=== PATIENT | male | born 1965 | race African-American/Black ===

== ENCOUNTER 2023-11-20 15:32 | Inpatient (IN) | payer BC ==
[2023-11-20 16:11] LABS: #Basophils Less than 0.03 10x3/uL (0.0-0.2); #Eosinphils Less than 0.03 10x3/uL (0.0-0.7); %Monocytes 7.9 % (0.0-10.0); %Neutrophils 89.7 % (42.0-75.0); Hematocrit 26.1 % (42.0-52.0); Hemoglobin 8.9 g/dL (14.0-18.0); Mean Corpuscular HGB CONC 34.1 g/dL (32.0-36.0); Mean Corpuscular Hemoglobin 30.6 pg (27.0-31.0); Mean Corpuscular Volume 89.7 fL (78.0-98.0); Platelet Count 279 10x3/uL (130-400); RBC Distribution Width 12.6 % (11.5-14.5); Red Blood Cell (RBC) Count 2.91 mill/uL (4.70-6.10)
[2023-11-20 16:26] LABS: INR-International Normal Ratio 1.1; Prothrombin Time 14.5 sec (12.0-14.7)
[2023-11-20] MEDS ORDERED: Acetaminophen 325 MG TAB ONE (16:27)
[2023-11-20] MEDS ORDERED: Cefepime 2 GM VIAL ONE (16:28)
[2023-11-20] MEDS ORDERED: Vancomycin 1 GM/200 ML (FROZEN) BAG ONE (16:28)
[2023-11-20 16:33] LABS: Lipase 6 U/L (8-78); Magnesium 1.8 mg/dL (1.6-2.6)
[2023-11-20] MEDS ORDERED: Sodium Chloride 0.9% 100 ML ONE (16:33)
[2023-11-20 16:34] LABS: ALT (SGPT) 25 U/L (8-55); AST (SGOT) 33 U/L (5-34); Acetaminophen Less than 10 mcg/mL (Less than 10); Albumin 2.4 g/dL (3.5-5.0); Alcohol Less than 10.0 mg/dL (Less than 10); Alkaline Phosphatase 77 U/L (40-110); Anion Gap 17 mmol/L (10-20); BUN (Urea Nitrogen) 26 mg/dL (8.4-25.7); Bilirubin, Total 1.3 mg/dL (0.2-1.2); CK (CPK) 415 U/L (30-200); Calc. Creatinine Clearance 0 mL/min (70-130); Calcium 8.6 mg/dL (7.8-10.44); Carbon Dioxide 20 mmol/L (22-29); Chloride 102 mmol/L (98-107); Estimated GFR 52; Globulin 4.2 g/dL (2.4-3.5); Glucose 94 mg/dL (70-105); Potassium 2.9 mmol/L (3.5-5.1); Protein, Total 6.6 g/dL (6.0-8.3); Salicylate Less than 8.0 mg/dL (Less than 8.0); Sodium 136 mmol/L (136-145)
[2023-11-20 16:36] LABS: Troponin I 0.014 ng/mL (< 0.028)
[2023-11-20 17:31] LABS: SARS-CoV-2 E Target Negative; SARS-CoV-2 N2 Target Negative; SARS-CoV-2 NAA Rapid Test Not Detected (NotDetected); SARS-CoV-2 RdRP gene Negative
[2023-11-20 19:58] LABS: Amphetamine Not Detected (NotDetected); Barbiturates Screen Not Detected (NotDetected); Benzodiazepine Screen Not Detected (NotDetected); Cocaine Metabolite Screen Not Detected (NotDetected); Methadone Not Detected (NotDetected); Methamphetamine Not Detected (NotDetected); Opiate Screen Not Detected (NotDetected); Oxycodone Screen Not Detected (NotDetected); Phencyclidine (PCP) Not Detected (NotDetected); THC/Cannabinoid Screen Not Detected (NotDetected); Tricyclic Screen Not Detected (NotDetected)
[2023-11-20 20:00] LABS: Bacteria/HPF None Seen HPF (None Seen); Bilirubin Negative (Negative); Blood, Urine 1+ (Negative); CAUTI Indications for Culture Dysuria,urgency,freq; Clarity Clear (Clear); Glucose, Urine (Dipstick) Normal (Negative); Ketone, Urine Negative (Negative); Leukocyte Negative Leu/uL (Negative); Nitrite Negative (Negative); Protein, Urine (Dipstick) 100 mg/dL (Neg-Trace); Specific Gravity, Urine 1.015 (1.002-1.036); Squamous Epithelial None Seen HPF (0-3); Urobilinogen 3 mg/dL (Less than 2); WBC/HPF 0-3 HPF (0-3)
[2023-11-20 20:06] LABS: Urine Culture Reflex No No
[2023-11-20] MEDS ORDERED: Acetaminophen 650 MG Suppository PR PRN (22:04)
[2023-11-20] MEDS ORDERED: Ondansetron PF 4 MG/2 ML Vial IVP PRN (22:04)
[2023-11-20] MEDS ORDERED: Calcium Carbonate 500 MG ChewTAB PO PRN (22:04)
[2023-11-20] MEDS ORDERED: Dextrose 5% in Water 1,000 ML IV PRN (22:04)
[2023-11-20] MEDS ORDERED: Ondansetron ODT 4 MG TAB PO PRN (22:04)
[2023-11-20] MEDS ORDERED: Glucagon 1 MG/ML KIT IM PRN (22:04)
[2023-11-20] MEDS ORDERED: Boostrix 0.5 ML (Tdap) VIAL (>/=7 yrs of age) ONE (23:36)
[2023-11-21] MEDS ORDERED: diphenhydrAMINE 50 MG/ML VIAL ONE (00:57)
[2023-11-21] MEDS ORDERED: methylPREDNISolone Sod Succ 40 MG VIAL ONE (00:57)
[2023-11-21 03:20] VITALS: BMI 35.4
[2023-11-21] MEDS: Sodium Chloride 0.9% 1,000 ML IV SCH ×2 (03:53→10:56)
[2023-11-21] MEDS: Aspirin 81 mg Enteric Coated Tablet PO SCH ×2 (03:54→10:50)
[2023-11-21] MEDS: Piperacillin/Tazobactam 3.375 GM in Sodium Chloride 0.9% 100 ML IVPB SCH ×3 (03:55→10:41)
[2023-11-21 04:07] LABS: #Basophils Less than 0.03 10x3/uL (0.0-0.2); #Eosinphils Less than 0.03 10x3/uL (0.0-0.7); %Basophils 0.1 % (0.0-1.0); %Lymphocytes 2.5 % (21.0-51.0); %Monocytes 5.5 % (0.0-10.0); %Neutrophils 91.4 % (42.0-75.0); Hematocrit 28.3 % (42.0-52.0); Hemoglobin 9.5 g/dL (14.0-18.0); Mean Corpuscular HGB CONC 33.6 g/dL (32.0-36.0); Mean Corpuscular Hemoglobin 30.4 pg (27.0-31.0); Mean Corpuscular Volume 90.4 fL (78.0-98.0); Platelet Count 336 10x3/uL (130-400); RBC Distribution Width 13.1 % (11.5-14.5); Red Blood Cell (RBC) Count 3.13 mill/uL (4.70-6.10)
[2023-11-21] MEDS: Potassium Chloride 20 MEQ TAB PO SCH ×2 (04:10→04:55)
[2023-11-21 04:38] LABS: Anion Gap 21 mmol/L (10-20); BUN (Urea Nitrogen) 32 mg/dL (8.4-25.7); Calc. Creatinine Clearance 87 mL/min (70-130); Calcium 7.9 mg/dL (7.8-10.44); Carbon Dioxide 15 mmol/L (22-29); Cardiac Risk 4.8 (Less than 4.5); Chloride 102 mmol/L (98-107); Cholesterol 163 mg/dl (< 200 Desired); Estimated GFR 54; Glucose 376 mg/dL (70-105); HDL Cholesterol 34 mg/dL (>60 Neg Risk); LDL Cholesterol, Calculated 115 mg/dL; Potassium 3.6 mmol/L (3.5-5.1); Sodium 134 mmol/L (136-145); Triglycerides 72 mg/dL (Less than 150)
[2023-11-21] MEDS: diphenhydrAMINE 50 MG/ML VIAL IVP SCH (04:56)
[2023-11-21] MEDS: methylPREDNISolone Sod Succ/PF 125 MG/2 ML VIAL IVP SCH (04:56)
[2023-11-21] MEDS: Insulin Lispro 100 UNIT/ML 10 ML VIAL SC PRN ×2 (05:53→21:10)
[2023-11-21] MEDS ORDERED: Vancomycin 1 GM in Sodium Chloride 0.9% 250 ML 300 ML IVPB SCH (09:00)
[2023-11-21] MEDS: Famotidine 20 MG TAB PO SCH (10:50)
[2023-11-21] MEDS: Enoxaparin 40 MG (0.4 mL) SYRINGE SC SCH (10:50)
[2023-11-21] MEDS: glyBURIDE 5 MG TAB PO SCH ×2 (11:07→17:49)
[2023-11-21] MEDS: Amlodipine 5 MG TAB PO SCH (11:08)
[2023-11-21] MEDS: Insulin Glargine 30 UNITS/0.3 ML VIAL SC SCH (11:08)
[2023-11-21] MEDS: Atorvastatin Calcium 40 MG TAB PO SCH (21:10)
[2023-11-21] MEDS: DAPTOmycin 1,000 MG in Sodium Chloride 0.9% 50 ML IVPB SCH (21:30)
[2023-11-22 04:05] LABS: #Basophils Less than 0.03 10x3/uL (0.0-0.2); #Eosinphils Less than 0.03 10x3/uL (0.0-0.7); %Basophils 0.1 % (0.0-1.0); %Lymphocytes 4.7 % (21.0-51.0); %Monocytes 7.9 % (0.0-10.0); %Neutrophils 86.6 % (42.0-75.0); Hematocrit 30.8 % (42.0-52.0); Hemoglobin 10.4 g/dL (14.0-18.0); Mean Corpuscular HGB CONC 33.8 g/dL (32.0-36.0); Mean Corpuscular Hemoglobin 30.5 pg (27.0-31.0); Mean Corpuscular Volume 90.3 fL (78.0-98.0); Mean Platelet Volume 8.9 fL (7.4-10.4); Platelet Count 422 10x3/uL (130-400); RBC Distribution Width 12.9 % (11.5-14.5); Red Blood Cell (RBC) Count 3.41 mill/uL (4.70-6.10)
[2023-11-22 04:21] LABS: Hemoglobin A1c 8.7 % (4.0-6.0)
[2023-11-22 04:25] LABS: ALT (SGPT) 29 U/L (8-55); AST (SGOT) 22 U/L (5-34); Albumin 2.1 g/dL (3.5-5.0); Alkaline Phosphatase 91 U/L (40-110); Anion Gap 15 mmol/L (10-20); BUN (Urea Nitrogen) 30 mg/dL (8.4-25.7); Bilirubin, Total 0.7 mg/dL (0.2-1.2); Calc. Creatinine Clearance 107 mL/min (70-130); Calcium 8.4 mg/dL (7.8-10.44); Carbon Dioxide 20 mmol/L (22-29); Chloride 104 mmol/L (98-107); Estimated GFR 70; Globulin 4.3 g/dL (2.4-3.5); Glucose 339 mg/dL (70-105); Magnesium 2.4 mg/dL (1.6-2.6); Potassium 3.6 mmol/L (3.5-5.1); Protein, Total 6.4 g/dL (6.0-8.3); Sodium 135 mmol/L (136-145)
[2023-11-22] MEDS: Insulin Lispro 100 UNIT/ML 10 ML VIAL SC PRN (09:25)
[2023-11-22] MEDS ORDERED: Bupivacaine PF 0.5% 30 ML VIAL ONE (10:48)
[2023-11-22] MEDS ORDERED: fentaNYL PF 100 MCG/2 ML SYRINGE ONE (11:34)
[2023-11-22] MEDS ORDERED: PROPOFOL 20 ML ONE (11:35)
[2023-11-22] MEDS ORDERED: Midazolam HCl 2 mg/2 ml Vial ONE (11:43)
[2023-11-22] MEDS ORDERED: PHENYLEPHRINE-NS 100 MCG/ML 10 ML SYRINGE ONE ×2 (11:50→12:07)
[2023-11-22] MEDS ORDERED: Ondansetron PF 4 MG/2 ML Vial ONE (11:58)
[2023-11-22] MEDS ORDERED: traMADol HCl 50 MG TAB PO PRN (13:34)
[2023-11-22] MEDS: Zolpidem Tartrate 5 MG TAB PO PRN (20:05)
[2023-11-22] MEDS: Insulin Glargine 30 UNITS/0.3 ML VIAL SC SCH (20:35)
[2023-11-23 06:59] LABS: #Basophils Less than 0.03 10x3/uL (0.0-0.2); #Eosinphils Less than 0.03 10x3/uL (0.0-0.7); %Basophils 0.1 % (0.0-1.0); %Eosinophils 0.1 % (0.0-10.0); %Lymphocytes 9.7 % (21.0-51.0); %Monocytes 9.2 % (0.0-10.0); %Neutrophils 79.4 % (42.0-75.0); Hematocrit 27.6 % (42.0-52.0); Hemoglobin 9.1 g/dL (14.0-18.0); Mean Corpuscular Hemoglobin 30.6 pg (27.0-31.0); Mean Corpuscular Volume 92.9 fL (78.0-98.0); Mean Platelet Volume 8.9 fL (7.4-10.4); Platelet Count 426 10x3/uL (130-400); RBC Distribution Width 13.4 % (11.5-14.5); Red Blood Cell (RBC) Count 2.97 mill/uL (4.70-6.10)
[2023-11-23 07:26] LABS: ALT (SGPT) 38 U/L (8-55); AST (SGOT) 29 U/L (5-34); Albumin 2.1 g/dL (3.5-5.0); Alkaline Phosphatase 87 U/L (40-110); Anion Gap 14 mmol/L (10-20); BUN (Urea Nitrogen) 21 mg/dL (8.4-25.7); Bilirubin, Total 0.5 mg/dL (0.2-1.2); Calc. Creatinine Clearance 131 mL/min (70-130); Calcium 8.1 mg/dL (7.8-10.44); Carbon Dioxide 22 mmol/L (22-29); Chloride 107 mmol/L (98-107); Estimated GFR 89; Globulin 4.1 g/dL (2.4-3.5); Glucose 210 mg/dL (70-105); Magnesium 2.3 mg/dL (1.6-2.6); Potassium 3.6 mmol/L (3.5-5.1); Protein, Total 6.2 g/dL (6.0-8.3); Sodium 139 mmol/L (136-145)
[2023-11-23] MEDS: Lorazepam 2 MG/ML VIAL SLOW IVP SCH (10:06)
[2023-11-23] MEDS: Potassium Chloride 20 MEQ TAB PO SCH (10:06)
[2023-11-24] MEDS: Acetaminophen 325 MG TAB PO PRN (00:08)
[2023-11-24] MEDS: Lorazepam 0.5 MG TAB PO PRN (01:57)
[2023-11-24 04:27] LABS: Hematocrit 29.4 % (42.0-52.0); Hemoglobin 9.8 g/dL (14.0-18.0); Mean Corpuscular HGB CONC 33.3 g/dL (32.0-36.0); Mean Corpuscular Hemoglobin 30.2 pg (27.0-31.0); Mean Corpuscular Volume 90.5 fL (78.0-98.0); Mean Platelet Volume 8.4 fL (7.4-10.4); Platelet Count 397 10x3/uL (130-400); RBC Distribution Width 13.3 % (11.5-14.5); Red Blood Cell (RBC) Count 3.25 mill/uL (4.70-6.10)
[2023-11-24 04:59] LABS: Anion Gap 10 mmol/L (10-20); BUN (Urea Nitrogen) 14 mg/dL (8.4-25.7); Calc. Creatinine Clearance 133 mL/min (70-130); Calcium 8.5 mg/dL (7.8-10.44); Carbon Dioxide 23 mmol/L (22-29); Chloride 107 mmol/L (98-107); Estimated GFR 91; Glucose 157 mg/dL (70-105); Potassium 3.4 mmol/L (3.5-5.1); Sodium 137 mmol/L (136-145)
[2023-11-24 05:01] LABS: Lymphocytes 16 % (21-51); Monocytes 6 % (0-10); Neutrophil 78 % (42-75); Platelet Adequacy Comment Platelets Normal; RBC Morphology Within Normal Limits
[2023-11-24] MEDS ORDERED: Potassium Chloride 20 MEQ TAB PO SCH (08:30)
[2023-11-24] MEDS: Potassium Chloride 20 MEQ TAB PO SCH ×2 (08:54→17:21)
[2023-11-24] MEDS: Lisinopril 5 MG TAB PO SCH ×2 (08:55→12:43)
[2023-11-24] MEDS: Amlodipine 5 MG TAB PO SCH (12:40)
[2023-11-24] MEDS: traMADol HCl 50 MG TAB PO PRN (17:34)
[2023-11-24] MEDS: hydrALAZINE 20 MG/ML VIAL SLOW IVP PRN (22:25)
[2023-11-25 06:03] LABS: #Basophils 0.03 10x3/uL (0.0-0.2); %Basophils 0.2 % (0.0-1.0); %Eosinophils 0.5 % (0.0-10.0); %Lymphocytes 14.1 % (21.0-51.0); %Monocytes 10.1 % (0.0-10.0); %Neutrophils 73.4 % (42.0-75.0); Hemoglobin 10.2 g/dL (14.0-18.0); Mean Corpuscular HGB CONC 32.9 g/dL (32.0-36.0); Mean Corpuscular Hemoglobin 30.4 pg (27.0-31.0); Mean Corpuscular Volume 92.3 fL (78.0-98.0); Mean Platelet Volume 8.9 fL (7.4-10.4); Platelet Count 466 10x3/uL (130-400); RBC Distribution Width 13.3 % (11.5-14.5); Red Blood Cell (RBC) Count 3.36 mill/uL (4.70-6.10)
[2023-11-25 06:27] LABS: ALT (SGPT) 38 U/L (8-55); AST (SGOT) 26 U/L (5-34); Albumin 2.2 g/dL (3.5-5.0); Alkaline Phosphatase 94 U/L (40-110); Anion Gap 11 mmol/L (10-20); BUN (Urea Nitrogen) 21 mg/dL (8.4-25.7); Bilirubin, Total 0.4 mg/dL (0.2-1.2); Calc. Creatinine Clearance 116 mL/min (70-130); Carbon Dioxide 22 mmol/L (22-29); Chloride 106 mmol/L (98-107); Estimated GFR 77; Globulin 4.7 g/dL (2.4-3.5); Glucose 223 mg/dL (70-105); Potassium 3.9 mmol/L (3.5-5.1); Protein, Total 6.9 g/dL (6.0-8.3); Sodium 135 mmol/L (136-145)
[2023-11-25] MEDS: Amlodipine 10 MG TAB PO SCH (08:59)
[2023-11-25] MEDS: Lisinopril 10 MG TAB PO SCH ×2 (08:59→12:27)
[2023-11-25] MEDS: Gabapentin 100 MG CAP PO SCH ×2 (12:26→21:06)
[2023-11-25] MEDS: hydrALAZINE 20 MG/ML VIAL SLOW IVP PRN (13:40)
[2023-11-25] MEDS ORDERED: Potassium Chloride 20 MEQ TAB PO SCH (17:00)
[2023-11-25] MEDS: Ketorolac Tromethamine 30 MG (1 mL) VIAL IVP SCH (19:15)
[2023-11-25] MEDS: Insulin Glargine 30 UNITS/0.3 ML VIAL SC SCH (21:06)
[2023-11-26] MEDS: Lisinopril 20 MG TAB PO SCH (08:23)
[2023-11-26] MEDS: Ketorolac Tromethamine 30 MG (1 mL) VIAL IVP PRN (08:46)
[2023-11-26 10:40] LABS: Actual Bicarbonate (HCO3a) 20.7 mEq/L (22-28); Base Excess (BEa) -1.6 mEq/L (-2.0 to +3.0); CO2 Tension 27.6 mmHg (35.0-45.0); Calcium, Ionized (arterial) 1.21 mmol/L (1.12-1.30); Carboxyhemoglobin (COHb) 0.1 gm% (0.0-3.0); Hematocrit-ABG 32 % (42.0-52.0); Hemoglobin (Hb) 10.9 g/dL (14.0-18.0); O2 Tension (PaO2), arterial 84.1 mmHg (80.0-100.0); Potassium - ABG Lab 4.04 mmol/L (3.70-5.30); pH, Arterial 7.493 (7.35-7.45)
[2023-11-26 10:41] LABS: Puncture Site Left Radial artery
[2023-11-26 11:03] LABS: #Basophils Less than 0.03 10x3/uL (0.0-0.2); %Basophils 0.1 % (0.0-1.0); %Eosinophils 0.6 % (0.0-10.0); %Lymphocytes 12.3 % (21.0-51.0); %Monocytes 8.3 % (0.0-10.0); %Neutrophils 77.4 % (42.0-75.0); Hematocrit 32.2 % (42.0-52.0); Hemoglobin 10.6 g/dL (14.0-18.0); Mean Corpuscular HGB CONC 32.9 g/dL (32.0-36.0); Mean Corpuscular Hemoglobin 29.9 pg (27.0-31.0); Mean Platelet Volume 8.4 fL (7.4-10.4); Platelet Count 435 10x3/uL (130-400); RBC Distribution Width 13.6 % (11.5-14.5); Red Blood Cell (RBC) Count 3.54 mill/uL (4.70-6.10)
[2023-11-26 11:24] LABS: ALT (SGPT) 43 U/L (8-55); AST (SGOT) 38 U/L (5-34); Albumin 2.2 g/dL (3.5-5.0); Alkaline Phosphatase 82 U/L (40-110); Anion Gap 11 mmol/L (10-20); BUN (Urea Nitrogen) 23 mg/dL (8.4-25.7); Bilirubin, Total 0.4 mg/dL (0.2-1.2); Calc. Creatinine Clearance 114 mL/min (70-130); Calcium 8.9 mg/dL (7.8-10.44); Carbon Dioxide 21 mmol/L (22-29); Chloride 110 mmol/L (98-107); Estimated GFR 76; Globulin 4.4 g/dL (2.4-3.5); Glucose 192 mg/dL (70-105); Potassium 4.1 mmol/L (3.5-5.1); Protein, Total 6.6 g/dL (6.0-8.3); Sodium 138 mmol/L (136-145)
[2023-11-26] MEDS: levETIRAcetam 500 MG (5 mL) VIAL SLOW IVP SCH ×2 (11:29→21:23)
[2023-11-26] MEDS: Labetalol HCl 100 MG/20 ML VIAL SLOW IVP PRN (12:08)
[2023-11-26] MEDS: Nitroglycerin 2% Ointment 1 INCH/1 GM Packet ONE (14:16)
[2023-11-26] MEDS: Metoprolol Tartrate 25 MG TAB PO SCH ×2 (14:29→21:20)
[2023-11-26 14:43] LABS: Troponin I Less than 0.010 ng/mL (< 0.028)
[2023-11-26] MEDS: Nitroglycerin 0.2mg/Hour PATCH TD SCH (15:35)
[2023-11-26 18:21] LABS: Troponin I Less than 0.010 ng/mL (< 0.028)
[2023-11-26] MEDS ORDERED: levETIRAcetam 500 MG (5 mL) VIAL SLOW IVP SCH (21:00)
[2023-11-27] MEDS: Transdermal Patch Removal TOP SCH (03:19)
[2023-11-27 07:39] LABS: #Basophils 0.03 10x3/uL (0.0-0.2); %Basophils 0.2 % (0.0-1.0); %Eosinophils 0.5 % (0.0-10.0); %Lymphocytes 10.7 % (21.0-51.0); %Monocytes 8.4 % (0.0-10.0); %Neutrophils 78.9 % (42.0-75.0); Hematocrit 31.4 % (42.0-52.0); Hemoglobin 10.5 g/dL (14.0-18.0); Mean Corpuscular HGB CONC 33.4 g/dL (32.0-36.0); Mean Corpuscular Hemoglobin 30.5 pg (27.0-31.0); Mean Corpuscular Volume 91.3 fL (78.0-98.0); Mean Platelet Volume 8.3 fL (7.4-10.4); Platelet Count 440 10x3/uL (130-400); RBC Distribution Width 13.6 % (11.5-14.5); Red Blood Cell (RBC) Count 3.44 mill/uL (4.70-6.10)
[2023-11-27 07:59] LABS: Lactic Acid 0.82 mmol/L (0.5-2.2)
[2023-11-27 08:05] LABS: ALT (SGPT) 55 U/L (8-55); AST (SGOT) 43 U/L (5-34); Albumin 2.3 g/dL (3.5-5.0); Alkaline Phosphatase 90 U/L (40-110); Anion Gap 11 mmol/L (10-20); BUN (Urea Nitrogen) 19 mg/dL (8.4-25.7); Bilirubin, Total 0.4 mg/dL (0.2-1.2); Calc. Creatinine Clearance 126 mL/min (70-130); Calcium 8.7 mg/dL (7.8-10.44); Carbon Dioxide 21 mmol/L (22-29); Chloride 109 mmol/L (98-107); Estimated GFR 85; Globulin 4.6 g/dL (2.4-3.5); Glucose 231 mg/dL (70-105); Phosphorus 3.2 mg/dL (2.3-4.7); Potassium 4.1 mmol/L (3.5-5.1); Protein, Total 6.9 g/dL (6.0-8.3); Sodium 137 mmol/L (136-145)
[2023-11-27] MEDS: Lisinopril 20 MG TAB PO SCH (20:41)
[2023-11-28] MEDS: fentaNYL 50 mcg/mL 1 mL Vial SLOW IVP PRN (04:09)
[2023-11-28] MEDS ORDERED: Magnevist 469MG/ML 20 ML VIAL ONE (13:40)
[2023-11-28] MEDS: Nitroglycerin 2% Ointment 1 INCH/1 GM Packet TOP SCH (17:02)
[2023-11-29 05:23] LABS: #Basophils 0.03 10x3/uL (0.0-0.2); %Basophils 0.2 % (0.0-1.0); %Eosinophils 0.6 % (0.0-10.0); %Lymphocytes 12.8 % (21.0-51.0); %Monocytes 9.5 % (0.0-10.0); Hematocrit 31.3 % (42.0-52.0); Hemoglobin 10.3 g/dL (14.0-18.0); Mean Corpuscular HGB CONC 32.9 g/dL (32.0-36.0); Mean Corpuscular Hemoglobin 30.8 pg (27.0-31.0); Mean Corpuscular Volume 93.7 fL (78.0-98.0); Mean Platelet Volume 8.4 fL (7.4-10.4); Platelet Count 370 10x3/uL (130-400); RBC Distribution Width 13.8 % (11.5-14.5); Red Blood Cell (RBC) Count 3.34 mill/uL (4.70-6.10)
[2023-11-29 05:26] LABS: Anion Gap 10 mmol/L (10-20); BUN (Urea Nitrogen) 19 mg/dL (8.4-25.7); Calc. Creatinine Clearance 127 mL/min (70-130); Calcium 8.6 mg/dL (7.8-10.44); Carbon Dioxide 21 mmol/L (22-29); Chloride 113 mmol/L (98-107); Estimated GFR 88; Glucose 91 mg/dL (70-105); Potassium 3.7 mmol/L (3.5-5.1); Sodium 140 mmol/L (136-145)
[2023-11-29] MEDS: Lorazepam 2 MG/ML VIAL SLOW IVP PRN (11:30)
[2023-11-30 06:44] LABS: #Basophils 0.03 10x3/uL (0.0-0.2); %Basophils 0.2 % (0.0-1.0); %Eosinophils 0.4 % (0.0-10.0); %Lymphocytes 9.1 % (21.0-51.0); %Monocytes 7.6 % (0.0-10.0); Hematocrit 31.8 % (42.0-52.0); Hemoglobin 10.4 g/dL (14.0-18.0); Mean Corpuscular HGB CONC 32.7 g/dL (32.0-36.0); Mean Corpuscular Hemoglobin 30.8 pg (27.0-31.0); Mean Corpuscular Volume 94.1 fL (78.0-98.0); Mean Platelet Volume 8.6 fL (7.4-10.4); Platelet Count 362 10x3/uL (130-400); RBC Distribution Width 13.6 % (11.5-14.5); Red Blood Cell (RBC) Count 3.38 mill/uL (4.70-6.10)
[2023-11-30 06:58] LABS: Anion Gap 13 mmol/L (10-20); BUN (Urea Nitrogen) 20 mg/dL (8.4-25.7); Calc. Creatinine Clearance 123 mL/min (70-130); Calcium 8.8 mg/dL (7.8-10.44); Carbon Dioxide 19 mmol/L (22-29); Chloride 110 mmol/L (98-107); Estimated GFR 84; Glucose 121 mg/dL (70-105); Potassium 3.9 mmol/L (3.5-5.1); Sodium 138 mmol/L (136-145)
[2023-11-30] MEDS: Meropenem 1 GM in Sodium Chloride 0.9% 100 ML IVPB SCH ×2 (16:13→23:51)
[2023-12-01 04:14] LABS: #Basophils 0.03 10x3/uL (0.0-0.2); %Basophils 0.2 % (0.0-1.0); %Eosinophils 0.5 % (0.0-10.0); %Lymphocytes 8.8 % (21.0-51.0); %Monocytes 7.7 % (0.0-10.0); %Neutrophils 82.3 % (42.0-75.0); Hemoglobin 9.8 g/dL (14.0-18.0); Mean Corpuscular HGB CONC 32.7 g/dL (32.0-36.0); Mean Corpuscular Volume 91.7 fL (78.0-98.0); Mean Platelet Volume 8.5 fL (7.4-10.4); Platelet Count 344 10x3/uL (130-400); RBC Distribution Width 13.5 % (11.5-14.5); Red Blood Cell (RBC) Count 3.27 mill/uL (4.70-6.10)
[2023-12-01 04:35] LABS: Anion Gap 14 mmol/L (10-20); BUN (Urea Nitrogen) 18 mg/dL (8.4-25.7); Calc. Creatinine Clearance 147 mL/min (70-130); Calcium 8.4 mg/dL (7.8-10.44); Carbon Dioxide 17 mmol/L (22-29); Chloride 112 mmol/L (98-107); Estimated GFR 101; Glucose 46 mg/dL (70-105); Potassium 3.3 mmol/L (3.5-5.1); Sodium 140 mmol/L (136-145)
[2023-12-01] MEDS: Dextrose 50% Abboject 50 ML SYRINGE SLOW IVP PRN (04:36)
[2023-12-01] MEDS ORDERED: Electrolyte Replacement Protocol FS PRN (06:30)
[2023-12-01] MEDS ORDERED: Potassium Chloride 20 MEQ TAB PO SCH (08:00)
[2023-12-01] MEDS: glyBURIDE 5 MG TAB PO SCH (09:05)
[2023-12-01] MEDS: Potassium Chloride 20 MEQ in Premix 1 BAG IVPB SCH (09:07)
[2023-12-01] MEDS: Senokot S 8.6-50 MG TAB PO PRN (09:12)
[2023-12-01 15:37] LABS: Potassium 3.7 mmol/L (3.5-5.1)
[2023-12-01] MEDS: Meropenem 1 GM VIAL ONE ×2 (16:07→16:11)
[2023-12-01] MEDS: Gabapentin 100 MG CAP PO SCH (16:09)
[2023-12-01] MEDS: Multivit, Therapeutic 1 TAB PO SCH (21:03)
[2023-12-01] MEDS: Folic Acid 1 MG TAB PO SCH (21:03)
[2023-12-01] MEDS: Senokot S 8.6-50 MG TAB PO SCH (21:03)
[2023-12-01] MEDS: Cholecalciferol 1,000 UNITS (25 MCG) TAB PO SCH (21:03)
[2023-12-01] MEDS: Cyanocobalamin (Vitamin B-12) 1,000 MCG TAB PO SCH (21:04)
[2023-12-02 05:49] LABS: #Basophils 0.04 10x3/uL (0.0-0.2); %Basophils 0.3 % (0.0-1.0); %Eosinophils 0.6 % (0.0-10.0); %Lymphocytes 10.5 % (21.0-51.0); %Monocytes 7.8 % (0.0-10.0); %Neutrophils 80.3 % (42.0-75.0); Hematocrit 31.2 % (42.0-52.0); Hemoglobin 10.3 g/dL (14.0-18.0); Mean Corpuscular Hemoglobin 29.9 pg (27.0-31.0); Mean Corpuscular Volume 90.7 fL (78.0-98.0); Mean Platelet Volume 8.8 fL (7.4-10.4); Platelet Count 359 10x3/uL (130-400); RBC Distribution Width 13.4 % (11.5-14.5); Red Blood Cell (RBC) Count 3.44 mill/uL (4.70-6.10)
[2023-12-02 06:08] LABS: Anion Gap 11 mmol/L (10-20); BUN (Urea Nitrogen) 17 mg/dL (8.4-25.7); Calc. Creatinine Clearance 133 mL/min (70-130); Calcium 8.6 mg/dL (7.8-10.44); Carbon Dioxide 19 mmol/L (22-29); Chloride 112 mmol/L (98-107); Estimated GFR 92; Glucose 161 mg/dL (70-105); Potassium 3.9 mmol/L (3.5-5.1); Sodium 138 mmol/L (136-145)
[2023-12-02] MEDS ORDERED: Sodium Bicarbonate 0.5 MEQ/ML SDV 10 ML ONE (09:39)
[2023-12-02] MEDS: pyridOXINE 50 MG (B6) TAB PO SCH (12:09)
[2023-12-02] MEDS: fentaNYL 50 mcg/mL 1 mL Vial SLOW IVP PRN (12:19)
[2023-12-02 12:55] LABS: CSF, Glucose 99 mg/dl (40-70)
[2023-12-02 13:05] LABS: CSF, Protein 359.3 mg/dL (15-40)
[2023-12-02] MEDS: Polyethylene Glycol 3350 17 GM Packet PO SCH ×2 (13:12→20:05)
[2023-12-02 13:32] LABS: Color Of CSF Supernatant COLORLESS (Colorless); Tube # 2; Unspun CSF Color PINK (Colorless)
[2023-12-02 14:37] LABS: CSF Source CSF; Tube # 4
[2023-12-02 14:38] LABS: Clarity Hazy (Clear)
[2023-12-02] MEDS: Insulin Lispro 100 UNIT/ML 10 ML VIAL SC PRN (17:09)
[2023-12-02] MEDS: Bisacodyl 10 MG SUPP PR SCH (20:24)
[2023-12-03] MEDS: Lactated Ringer's 1,000 ML IV SCH (00:24)
[2023-12-03] MEDS ORDERED: Lactated Ringer's 500 ML IV SCH (00:30)
[2023-12-03] MEDS: Albumin 25% 25 GM (100 mL) BOT IVPB SCH (00:32)
[2023-12-03] MEDS: Fleet Saline Enema 133 ML BOT PR SCH (02:42)
[2023-12-03 05:09] LABS: Anion Gap 13 mmol/L (10-20); BUN (Urea Nitrogen) 26 mg/dL (8.4-25.7); Calc. Creatinine Clearance 132 mL/min (70-130); Calcium 8.7 mg/dL (7.8-10.44); Carbon Dioxide 20 mmol/L (22-29); Chloride 112 mmol/L (98-107); Estimated GFR 92; Glucose 102 mg/dL (70-105); Potassium 3.7 mmol/L (3.5-5.1); Sodium 141 mmol/L (136-145)
[2023-12-03 05:19] LABS: #Basophils Less than 0.03 10x3/uL (0.0-0.2); %Basophils 0.2 % (0.0-1.0); %Eosinophils 0.5 % (0.0-10.0); %Lymphocytes 11.6 % (21.0-51.0); %Monocytes 8.2 % (0.0-10.0); %Neutrophils 79.2 % (42.0-75.0); Hematocrit 27.1 % (42.0-52.0); Hemoglobin 8.9 g/dL (14.0-18.0); Mean Corpuscular HGB CONC 32.8 g/dL (32.0-36.0); Mean Corpuscular Hemoglobin 30.6 pg (27.0-31.0); Mean Corpuscular Volume 93.1 fL (78.0-98.0); Mean Platelet Volume 9.4 fL (7.4-10.4); Platelet Count 350 10x3/uL (130-400); RBC Distribution Width 13.6 % (11.5-14.5); Red Blood Cell (RBC) Count 2.91 mill/uL (4.70-6.10)
[2023-12-03] MEDS: Milk Of Magnesia 30 ML UDCUP PO PRN (08:51)
[2023-12-03] MEDS: Heparin 5,000 UNITS/ML VIAL SC SCH (20:52)
[2023-12-03] MEDS: levETIRAcetam 500 MG TAB PO SCH (20:53)
[2023-12-04 08:58] LABS: #Basophils 0.03 10x3/uL (0.0-0.2); %Basophils 0.2 % (0.0-1.0); %Eosinophils 0.9 % (0.0-10.0); %Lymphocytes 10.4 % (21.0-51.0); %Monocytes 7.5 % (0.0-10.0); %Neutrophils 80.8 % (42.0-75.0); Hematocrit 28.8 % (42.0-52.0); Hemoglobin 9.5 g/dL (14.0-18.0); Mean Corpuscular Hemoglobin 30.1 pg (27.0-31.0); Mean Corpuscular Volume 91.1 fL (78.0-98.0); Mean Platelet Volume 9.2 fL (7.4-10.4); Platelet Count 346 10x3/uL (130-400); RBC Distribution Width 13.4 % (11.5-14.5); Red Blood Cell (RBC) Count 3.16 mill/uL (4.70-6.10)
[2023-12-04 09:12] LABS: Anion Gap 13 mmol/L (10-20); BUN (Urea Nitrogen) 17 mg/dL (8.4-25.7); Calc. Creatinine Clearance 149 mL/min (70-130); Calcium 8.7 mg/dL (7.8-10.44); Carbon Dioxide 21 mmol/L (22-29); Chloride 112 mmol/L (98-107); Estimated GFR 104; Glucose 119 mg/dL (70-105); Magnesium 2.1 mg/dL (1.6-2.6); Phosphorus 2.9 mg/dL (2.3-4.7); Potassium 3.4 mmol/L (3.5-5.1); Sodium 143 mmol/L (136-145)
[2023-12-04] MEDS: Potassium Chloride 20 MEQ TAB PO SCH (11:10)
[2023-12-04] MEDS: Pantoprazole DR 40 MG TAB PO SCH (11:10)
[2023-12-04] MEDS: Thiamine 100 MG TAB PO SCH (11:11)
[2023-12-04] MEDS: hydrALAZINE 20 MG/ML VIAL SLOW IVP PRN (12:27)
[2023-12-04] MEDS: Potassium Chloride 20 MEQ in Lactated Ringer's 1,000 ML IVPB SCH (12:57)
[2023-12-04] MEDS: Potassium Chloride 20 MEQ in Lactated Ringer's 1,000 ML IV SCH (14:03)
[2023-12-04] MEDS: Gabapentin 100 MG CAP PO SCH (19:55)
[2023-12-05] MEDS: Ketorolac Tromethamine 30 MG (1 mL) VIAL IVP SCH (04:42)
[2023-12-05 05:49] LABS: #Basophils 0.03 10x3/uL (0.0-0.2); %Basophils 0.2 % (0.0-1.0); %Eosinophils 0.9 % (0.0-10.0); %Lymphocytes 8.5 % (21.0-51.0); %Monocytes 7.2 % (0.0-10.0); %Neutrophils 82.8 % (42.0-75.0); Anion Gap 16 mmol/L (10-20); BUN (Urea Nitrogen) 21 mg/dL (8.4-25.7); Calc. Creatinine Clearance 143 mL/min (70-130); Calcium 8.6 mg/dL (7.8-10.44); Carbon Dioxide 19 mmol/L (22-29); Chloride 112 mmol/L (98-107); Estimated GFR 101; Glucose 175 mg/dL (70-105); Hematocrit 29.9 % (42.0-52.0); Hemoglobin 9.9 g/dL (14.0-18.0); Mean Corpuscular HGB CONC 33.1 g/dL (32.0-36.0); Mean Corpuscular Hemoglobin 30.6 pg (27.0-31.0); Mean Corpuscular Volume 92.3 fL (78.0-98.0); Mean Platelet Volume 9.3 fL (7.4-10.4); Platelet Count 359 10x3/uL (130-400); RBC Distribution Width 13.5 % (11.5-14.5); Red Blood Cell (RBC) Count 3.24 mill/uL (4.70-6.10); Sodium 143 mmol/L (136-145)
[2023-12-05] MEDS ORDERED: Morphine 2 MG/ML VIAL SLOW IVP PRN (08:58)
[2023-12-05] MEDS: HYDROcodone/Acetaminophen 5/325 mg Tablet PO PRN (09:39)
[2023-12-05] MEDS: Ketorolac Tromethamine 10 MG TAB PO SCH (11:50)
[2023-12-05] MEDS: Lactated Ringer's 1,000 ML IV SCH (13:48)
[2023-12-05] MEDS: traMADol HCl 50 MG TAB PO PRN (14:39)
[2023-12-05] MEDS: Enoxaparin 40 MG (0.4 mL) SYRINGE SC SCH (21:53)
[2023-12-06 04:50] LABS: #Basophils 0.03 10x3/uL (0.0-0.2); %Basophils 0.3 % (0.0-1.0); %Eosinophils 1.5 % (0.0-10.0); %Lymphocytes 8.7 % (21.0-51.0); %Monocytes 8.3 % (0.0-10.0); %Neutrophils 80.7 % (42.0-75.0); Hematocrit 30.5 % (42.0-52.0); Mean Corpuscular HGB CONC 32.8 g/dL (32.0-36.0); Mean Corpuscular Hemoglobin 29.9 pg (27.0-31.0); Mean Platelet Volume 9.2 fL (7.4-10.4); Platelet Count 341 10x3/uL (130-400); RBC Distribution Width 13.4 % (11.5-14.5); Red Blood Cell (RBC) Count 3.35 mill/uL (4.70-6.10)
[2023-12-06 05:07] LABS: Anion Gap 12 mmol/L (10-20); BUN (Urea Nitrogen) 27 mg/dL (8.4-25.7); Calc. Creatinine Clearance 142 mL/min (70-130); Calcium 8.6 mg/dL (7.8-10.44); Carbon Dioxide 19 mmol/L (22-29); Chloride 111 mmol/L (98-107); Estimated GFR 101; Glucose 279 mg/dL (70-105); Potassium 4.2 mmol/L (3.5-5.1); Sodium 138 mmol/L (136-145)
[2023-12-06] MEDS: Insulin Glargine 30 UNITS/0.3 ML VIAL SC SCH (09:22)
[2023-12-06] MEDS ORDERED: Morphine 4 MG/ML VIAL SLOW IVP PRN (14:21)
[2023-12-06] MEDS: Ketorolac Tromethamine 10 MG TAB PO SCH (17:53)
[2023-12-07 05:51] LABS: #Basophils Less than 0.03 10x3/uL (0.0-0.2); %Basophils 0.2 % (0.0-1.0); %Eosinophils 1.7 % (0.0-10.0); %Monocytes 7.7 % (0.0-10.0); %Neutrophils 78.2 % (42.0-75.0); Hematocrit 29.8 % (42.0-52.0); Hemoglobin 9.7 g/dL (14.0-18.0); Mean Corpuscular HGB CONC 32.6 g/dL (32.0-36.0); Mean Corpuscular Hemoglobin 30.5 pg (27.0-31.0); Mean Corpuscular Volume 93.7 fL (78.0-98.0); Mean Platelet Volume 9.5 fL (7.4-10.4); Platelet Count 322 10x3/uL (130-400); RBC Distribution Width 13.3 % (11.5-14.5); Red Blood Cell (RBC) Count 3.18 mill/uL (4.70-6.10)
[2023-12-07 06:02] LABS: Anion Gap 14 mmol/L (10-20); BUN (Urea Nitrogen) 24 mg/dL (8.4-25.7); Calc. Creatinine Clearance 153 mL/min (70-130); Calcium 8.6 mg/dL (7.8-10.44); Carbon Dioxide 20 mmol/L (22-29); Chloride 111 mmol/L (98-107); Estimated GFR 103; Glucose 227 mg/dL (70-105); Potassium 4.7 mmol/L (3.5-5.1); Sodium 140 mmol/L (136-145)
[2023-12-07] MEDS: Insulin Lispro 100 UNIT/ML 10 ML VIAL SC PRN (06:31)
[2023-12-08 08:16] LABS: #Basophils 0.03 10x3/uL (0.0-0.2); %Basophils 0.4 % (0.0-1.0); %Eosinophils 1.4 % (0.0-10.0); %Monocytes 7.2 % (0.0-10.0); %Neutrophils 76.6 % (42.0-75.0); Hematocrit 32.8 % (42.0-52.0); Hemoglobin 10.9 g/dL (14.0-18.0); Mean Corpuscular HGB CONC 33.2 g/dL (32.0-36.0); Mean Corpuscular Hemoglobin 30.1 pg (27.0-31.0); Mean Corpuscular Volume 90.6 fL (78.0-98.0); Mean Platelet Volume 9.5 fL (7.4-10.4); Platelet Count 244 10x3/uL (130-400); RBC Distribution Width 13.1 % (11.5-14.5); Red Blood Cell (RBC) Count 3.62 mill/uL (4.70-6.10)
[2023-12-08 09:30] LABS: Anion Gap 13 mmol/L (10-20); BUN (Urea Nitrogen) 14 mg/dL (8.4-25.7); Calc. Creatinine Clearance 162 mL/min (70-130); Calcium 8.8 mg/dL (7.8-10.44); Carbon Dioxide 23 mmol/L (22-29); Chloride 109 mmol/L (98-107); Estimated GFR 106; Glucose 183 mg/dL (70-105); Potassium 3.8 mmol/L (3.5-5.1); Sodium 141 mmol/L (136-145)
[2023-12-08] MEDS ORDERED: methylPREDNISolone Sod Succ/PF 125 MG/2 ML VIAL IVP SCH (11:00)
[2023-12-08] MEDS: methylPREDNISolone Sod Succ 1 GM in Sodium Chloride 0.9% 250 ML 250 ML IVPB SCH (13:33)
[2023-12-08 16:13] LABS: CSF IgG Index 1.3 (0.0-0.7); CSF IgG Synthesis Rate 236.1 mg/day (-9.9 TO +3.3); IgG Serum 1410 mg/dL (603-1613); IgG/Alb CSF 0.54 (0.00-0.25)
[2023-12-08] MEDS: Insulin Glargine 30 UNITS/0.3 ML VIAL SC SCH (20:50)
[2023-12-08] MEDS: Melatonin 3 MG TAB PO SCH (21:50)
[2023-12-09] MEDS ORDERED: methylPREDNISolone Sod Succ/PF 125 MG/2 ML VIAL IVP SCH (09:00)
[2023-12-09] MEDS: methylPREDNISolone Sod Succ 1 GM in Sodium Chloride 0.9% 250 ML 250 ML IVPB SCH (09:09)
[2023-12-09] MEDS: Meropenem 1 GM VIAL ONE (15:48)
[2023-12-09] MEDS ORDERED: Bisacodyl 10 MG SUPP PR PRN (19:24)
[2023-12-09] MEDS: Insulin Glargine 30 UNITS/0.3 ML VIAL SC SCH (20:53)
[2023-12-10 10:31] LABS: Actual Bicarbonate (HCO3v) 24.7 mEq/L (22-28); Base Excess 0.5 mEq/L (-2.0 to +3.0); Calcium, Ionized (venous) 1.18 mmol/L (1.16-1.32); Chloride (VBG) 104 mmol/L (98-106); Hematocrit-VBG 33 % (42.0-52.0); Hemoglobin (Hb) 11.3 g/dL (13.1-17.2); Potassium (VBG) 4.29 mmol/L (3.70-5.30); Sodium 137 mmol/L (133-146); pH (venous) 7.428 (7.32-7.43)
[2023-12-10] MEDS: Insulin Glargine 30 UNITS/0.3 ML VIAL SC SCH (21:36)
[2023-12-11 17:38] VITALS: BMI 33.2
[2023-12-11] MEDS: Insulin Glargine 30 UNITS/0.3 ML VIAL SC SCH (20:48)
[2023-12-13] MEDS ORDERED: Insulin Glargine 30 UNITS/0.3 ML VIAL SC SCH (15:45)
[2023-12-13] MEDS: Insulin Glargine 30 UNITS/0.3 ML VIAL SC SCH (21:43)
[2023-12-14] MEDS: Insulin Glargine 30 UNITS/0.3 ML VIAL SC SCH (21:34)
[2023-12-15] MEDS: Insulin Lispro 100 UNIT/ML 10 ML VIAL SC SCH (12:14)
[2023-12-15] MEDS ORDERED: traMADol HCl 50 MG TAB PO PRN (14:56)
[2023-12-15] MEDS: LevoFLOXacin 750 MG TAB PO SCH (15:31)
[2023-12-15] MEDS: Amoxicillin/Potassium Clav 875 MG TAB PO SCH (21:54)
[2023-12-16] MEDS: HYDROcodone/Acetaminophen 5/325 mg Tablet PO PRN (12:04)
[2023-12-18 04:50] LABS: Hematocrit 29.7 % (42.0-52.0); Hemoglobin 9.3 g/dL (14.0-18.0); Mean Corpuscular HGB CONC 31.3 g/dL (32.0-36.0); Mean Corpuscular Hemoglobin 30.3 pg (27.0-31.0); Mean Corpuscular Volume 96.7 fL (78.0-98.0); Mean Platelet Volume 9.6 fL (7.4-10.4); Platelet Count 202 10x3/uL (130-400); RBC Distribution Width 14.2 % (11.5-14.5); Red Blood Cell (RBC) Count 3.07 mill/uL (4.70-6.10)
[2023-12-18 05:05] LABS: Anion Gap 10 mmol/L (10-20); BUN (Urea Nitrogen) 19 mg/dL (8.4-25.7); Calc. Creatinine Clearance 139 mL/min (70-130); Calcium 8.6 mg/dL (7.8-10.44); Carbon Dioxide 24 mmol/L (22-29); Chloride 110 mmol/L (98-107); Estimated GFR 100; Glucose 92 mg/dL (70-105); Potassium 3.5 mmol/L (3.5-5.1); Sodium 140 mmol/L (136-145)
[2023-12-18 12:05] VITALS: TEMP 98.1
[2023-12-18 13:55] VITALS: BP 133/72
== END 2023-12-18 15:18 | disposition home health service (06) | DRG 853 ==
LOC: ERS 15:32 → OBSVTOIN 21:23 → 2SE 21:23 → MSONC 11-24 15:16 → IMCU/EMU 11-26 11:16 → 2SE 12-13 22:18
PROVIDERS: ADMIT Student in an Organized Health Care Education/Training Program; ATTEND Internal Medicine
PROC: 0T9B70Z Drainage of Bladder with Drainage Device, Via Natural or Artificial Opening (ICD-10-PCS; principal; 2023-11-22)
PROC: 0Y6M0ZD Detachment at Right Foot, Partial 4th Ray, Open Approach (ICD-10-PCS; 2023-11-22)
PROC: 0Y6M0ZF Detachment at Right Foot, Partial 5th Ray, Open Approach (ICD-10-PCS; 2023-11-22)
PROC: 4A00X4Z Measurement of Central Nervous Electrical Activity, External Approach (ICD-10-PCS; 2023-11-26)
PROC: 4A033R1 Measurement of Arterial Saturation, Peripheral, Percutaneous Approach (ICD-10-PCS; 2023-11-26)
PROC: 4A00X4Z Measurement of Central Nervous Electrical Activity, External Approach (ICD-10-PCS; 2023-11-27)
PROC: 009U3ZX Drainage of Spinal Canal, Percutaneous Approach, Diagnostic (ICD-10-PCS; 2023-12-02)
PROC: B01B1ZZ Fluoroscopy of Spinal Cord using Low Osmolar Contrast (ICD-10-PCS; 2023-12-02)
PROC: 4A00X4Z Measurement of Central Nervous Electrical Activity, External Approach (ICD-10-PCS; 2023-12-03)
DX: A41.9 Sepsis, unspecified organism (principal); G93.41 Metabolic encephalopathy; T67.01XA Heatstroke and sunstroke, initial encounter; N17.9 Acute kidney failure, unspecified; M86.9 Osteomyelitis, unspecified; G37.9 Demyelinating disease of central nervous system, unspecified; E11.52 Type 2 diabetes mellitus with diabetic peripheral angiopathy with gangrene; I10 Essential (primary) hypertension; D64.9 Anemia, unspecified; E11.649 Type 2 diabetes mellitus with hypoglycemia without coma; Z79.4 Long term (current) use of insulin; E11.69 Type 2 diabetes mellitus with other specified complication; Z90.49 Acquired absence of other specified parts of digestive tract; E11.40 Type 2 diabetes mellitus with diabetic neuropathy, unspecified; Z79.899 Other long term (current) drug therapy; K59.00 Constipation, unspecified; G35 Multiple sclerosis; Z79.82 Long term (current) use of aspirin; Z79.01 Long term (current) use of anticoagulants
CPT/HCPCS: 36415; 36416; 36600; 51702; 62270; 70450; 70551; 70553; 71045; 76377; 80048; 80053; 80061; 80306; 80307; 81001; 82040; 82042; 82140; 82550; 82784; 82805; 82945; 83036; 83605; 83690; 83735; 83916; 84100; 84146; 84157; 84443; 84484; 85025; 85027; 85610; 86141; 87040; 87070; 87076; 87077; 87086; 87149; 87186; 87205; 88305; 88311; 89051; 90471; 90715; 93005; 93010; 93306; 95700; 95711; 95816; 95819; 96361; 96365; 96366; 96367; 96375; 97139; A9579; J0360; J0665; J0692; J0878; J1200; J1644; J1650; J1815; J1885; J1953; J2060; J2185; J2250; J2405; J2543; J2704; J2919; J2930; J3010; J3370-JW; J3480; J7030; J7050; J7120; J7999; P9047; U0002

== ENCOUNTER 2023-12-20 15:47 | Emergency (ER) | payer BC | END 2023-12-20 16:14 | disposition left against medical advice (07) | LOC: ERS 15:47 | DX: Z48.00 Encounter for change or removal of nonsurgical wound dressing (principal) | CPT/HCPCS: 99282 ==